=== PATIENT | female | born 1995 | race Caucasian/White ===

== ENCOUNTER → 2020-12-05 | Outpatient (REF) | payer BC ==
[2020-12-05 16:14] LABS: CHLAMYDIA DNA AMPLIFICATION NEGATIVE (NEGATIVE); GC DNA AMPLIFICATION NEGATIVE (NEGATIVE)
== END ==
LOC: M SFHCWAGY 13:45
PROVIDERS: ATTEND Obstetrics & Gynecology
DX: Z11.3 Encounter for screening for infections with a predominantly sexual mode of transmission (principal)

== ENCOUNTER → 2020-12-14 | Outpatient (CLI) | payer BC ==
--- NOTE | 2020-12-14 15:02 | REP ---
INDICATION: Z31.9 INFERTILITY MANAGEMENT. COMPARISON: None. TECHNIQUE: Transvaginal pelvic sonography. FINDINGS: Uterine dimensions are normal at 6.2 x 3.3 x 4.6 cm. Endometrial echo is 1.3 cm thick and 3 line morphology. No free pelvic fluid. Right ovarian dimensions are 4.1 x 2.4 x 3.3 cm. Doppler flow is present in the right ovary, resistive index 0.59. There are proximally 10 follicles in the right ovary under a cm. There is a 3.0 x 2.2 x 1.8 cm simple cyst consistent with a small follicle cyst. The overall dimensions of the left ovary are 3.7 x 2.7 x 4.5 cm. It is Doppler flow is normal, resistive index 0.51. There is a 2.5 x 2.8 x 2.2 cm simple cyst in the left ovary and there are proximally 16 follicles less than 1 cm in diameter in the left ovary. IMPRESSION: Pelvic sonography/ovarian follicle study as above. <Electronically signed by Everardo Valdivia > 12/14/20 [id number]
== END ==
LOC: EDUNIT# 08:30 → M WHC 08:31
PROVIDERS: ATTEND Obstetrics & Gynecology
DX: Z31.9 Encounter for procreative management, unspecified (principal)